=== PATIENT | female | born 1980 | race Caucasian/White ===

== ENCOUNTER 2016-10-22 22:21 | Emergency (ER) | payer OTHER ==
[~2016-10-22] VITALS: Ht 149.9 cm; Wt 56.8 kg
[2016-10-22 22:30] VITALS: BP 125/58
--- NOTE | 2016-10-22 22:48 | NUR ---
Patient ambulated to bed 06.
--- NOTE | 2016-10-22 22:50 | NUR ---
36 Y/O F W/C/O POSSIBLE TAMPON STUCK IN HER CERVIX. SHE STATES SHE DOES NOT REMEMBER TAKING IT OUT, OR REPLACED FOR A NEW ONE X TODAY AT NOON. PT DENIES ANY PAIN, BUT BECAME CONCERN WHE SHE COULDNT FEEL THE STRING. ER MD MADE AWARE. NO S/S OF DISTRESS NOTED AT THE MOMENT.
--- NOTE | 2016-10-22 22:54 | NUR ---
Dr. Pederson evaluating patient at bedside.
--- NOTE | 2016-10-22 23:29 | NUR ---
Female chaperoned for Dr. jones during pelvic exam
--- NOTE | 2016-10-22 23:35 | NUR ---
DR JIMENEZ ASSISTED BY DR KAT-RESIDENT WITH DOG BEHAVIORIST PROCEDURE, WITH AVE EMT AUTO MOTOR MECHANIC AT BEDSIDE THE WHOLE TIME.
--- NOTE | 2016-10-22 23:43 | NUR ---
Female chaperoned for Dr. Villareal and Dr. Martinez during pelvic exam for removal of foreign body.
[2016-10-22 23:48] VITALS: BP 112/65
--- NOTE | 2016-10-22 23:48 | NUR ---
Patient discharged with v/s stable. Written and verbal after care instructions given and explained. Patient verbalized understanding. Ambulatory with steady gait. All questions addressed prior to discharge. Advised to follow up with PMD OR RETURN TO ER IF CONDITION WORSENS.
== END 2016-10-22 23:48 | disposition home or self-care (01) ==
LOC: MED 22:21
DX: T19.2XXA Foreign body in vulva and vagina, initial encounter (principal); F17.210 Nicotine dependence, cigarettes, uncomplicated; Z88.8 Allergy status to other drugs, medicaments and biological substances; X58.XXXA Exposure to other specified factors, initial encounter; Y93.89 Activity, other specified; Y92.89 Other specified places as the place of occurrence of the external cause; Y99.8 Other external cause status
CPT/HCPCS: 99284

== ENCOUNTER 2021-02-07 09:57 | Emergency (ER) | payer OTHER ==
[~2021-02-07] VITALS: Ht 149.9 cm; Wt 71.7 kg
[2021-02-07 10:03] VITALS: BP 122/52
--- NOTE | 2021-02-07 10:08 | NUR ---
PT AMBULATED TO ER BED WITH A STEADY GAIT.
--- NOTE | 2021-02-07 10:09 | NUR ---
40 Y/O FEMALE REFERRED BY DR. WAGGONER. PT STATES SHE WAS SENT TO RECEIVE STD TREATMENT. PT IS 14 WEEKS , LMP 10/01/20, IGOR 08/08/21. DENIES PAIN, DENIES SOB, DENIES CHEST PAIN. PMH: DM, HTN ALLERGIES: IBUPROFEN
--- NOTE | 2021-02-07 12:00 | NUR ---
PT RESTING IN BED, VISIBLE EQUAL RISE AND FALL, VSS, WILL CONTINUE TO MONITOR.
--- NOTE | 2021-02-07 12:55 | NUR ---
DR. CLOUD WITH PT AT PT BEDSIDE FOR FURTHER EVALUATION.
[2021-02-07] MEDS: PENICILLIN G BENZATHINE L-A 1.2 MU/2 ML SYR IM ONE (13:17)
[2021-02-07 13:31] VITALS: BP 129/62
--- NOTE | 2021-02-07 13:31 | NUR ---
Patient discharged with v/s stable. Written and verbal after care instructions given SYPHILIS and explained. Patient verbalized understanding. Ambulatory with steady gait. All questions addressed prior to discharge. Advised to follow up with PMD.
== END 2021-02-07 13:31 | disposition home or self-care (01) ==
LOC: MED 09:57
DX: O98.111 Syphilis complicating pregnancy, first trimester (principal); O98.311 Other infections with a predominantly sexual mode of transmission complicating pregnancy, first trimester; O24.111 Pre-existing type 2 diabetes mellitus, in pregnancy, first trimester; O10.911 Unspecified pre-existing hypertension complicating pregnancy, first trimester; Z3A.14 14 weeks gestation of pregnancy; Z88.6 Allergy status to analgesic agent
CPT/HCPCS: 99283; J0561

== ENCOUNTER 2021-02-14 08:49 | Emergency (ER) | payer OTHER ==
[~2021-02-14] VITALS: Ht 149.9 cm; Wt 73.0 kg
[2021-02-14 09:03] VITALS: BP 136/56
--- NOTE | 2021-02-14 09:07 | NUR ---
PT AMBULATED TO BED 11
--- NOTE | 2021-02-14 09:21 | NUR ---
PT STATES SHE IS "HERE FOR A PCN SHOT." PATIENT WAS TOLD BY HER OBGYN SHE NEEDS TO RECIEVE A PCN SHOT EVERY FRIDAY FOR 3 WEEK TO TREAT HER SYPHILIS. PT ALSO STATES SHE IS 15 WEEKS WITH 4TH CHILD. DENIES N/V/D; SKIN IS PINK/WARM/DRY; AAOX4 WITH EVEN AND STEADY GAIT; PT DENIES ANY FEVER, CP, SOB, OR COUGH AT THIS TIME; PATIENT STATES PAIN OF 0/10 AT THIS TIME; VSS; PATIENT POSITIONED FOR COMFORT; HOB ELEVATED; BEDRAILS UP X2; BED DOWN. ER MD MADE AWARE OF PT STATUS. HX: HTN, DM, AND STI NKDA MEDS:
[2021-02-14] MEDS ORDERED: PENICILLIN G BENZATHINE L-A 1.2 MU/2 ML SYR IM ONE (09:25)
--- NOTE | 2021-02-14 09:27 | NUR ---
ER AT BEDSIDE
[2021-02-14 09:59] VITALS: BP 136/56
--- NOTE | 2021-02-14 09:59 | NUR ---
Patient discharged with v/s stable. Written and verbal after care instructions given and explained. Patient verbalized understanding. Ambulatory with steady gait. All questions addressed prior to discharge. Advised to follow up with PMD.
== END 2021-02-14 09:59 | disposition home or self-care (01) ==
LOC: MED 08:49
DX: O98.112 Syphilis complicating pregnancy, second trimester (principal); Z3A.15 15 weeks gestation of pregnancy; Z98.890 Other specified postprocedural states
CPT/HCPCS: 96372; 99283; J0561

== ENCOUNTER 2021-02-21 10:28 | Emergency (ER) | payer OTHER ==
[~2021-02-21] VITALS: Ht 149.9 cm; Wt 73.0 kg
[2021-02-21 10:31] VITALS: BP 119/54
--- NOTE | 2021-02-21 10:40 | NUR ---
PT AMBULATED TO [facility], STEADY GAIT
[2021-02-21] MEDS ORDERED: PENICILLIN G BENZATHINE L-A 1.2 MU/2 ML SYR IM ONE (10:50)
--- NOTE | 2021-02-21 10:50 | NUR ---
Wendie holden in ED - 02/21/21 at 1052 by [email or web address] PT TAKEN TO XRAY VIA W/C
--- NOTE | 2021-02-21 11:05 | NUR ---
PT AMBULATED TO [facility], STEADY GAIT
[2021-02-21 12:05] VITALS: BP 119/54
== END 2021-02-21 12:06 | disposition home or self-care (01) ==
LOC: MED 10:28
DX: A53.9 Syphilis, unspecified (principal); E11.9 Type 2 diabetes mellitus without complications; I10 Essential (primary) hypertension
CPT/HCPCS: 96372; 99283; J0561

== ENCOUNTER 2021-08-02 06:27 | Inpatient (IN) | payer OTHER ==
[~2021-08-02] VITALS: Ht 149.9 cm; Wt 68.0 kg
[2021-08-02] MEDS ORDERED: ONDANSETRON 4 MG/2 ML VIAL IVP PRN (07:10)
[2021-08-02] MEDS ORDERED: OXYTOCIN 20 UNITS in LACTATED RINGERS 1,000 ML IV SCH (07:10)
[2021-08-02] MEDS ORDERED: CARBOPROST 250 MCG/ML AMP IM PRN (07:10)
[2021-08-02] MEDS ORDERED: AMPICILLIN 2,000 MG in NACL 0.9% MINI-BAG PLUS 100 ML IV SCH (07:10)
[2021-08-02] MEDS ORDERED: METHYLERGONOVINE 0.2 MG/ML AMP IM PRN ×2 (07:10→18:05)
[2021-08-02] MEDS: LACTATED RINGERS 1,000 ML IV SCH ×2 (07:27→15:24)
[2021-08-02 08:00] LABS: BASOPHILS % (AUTO) 0.4 % (0.0-2.0); EOSINOPHILS # (AUTO) 0.1 K/uL (0-0.4); EOSINOPHILS % (AUTO) 0.7 % (0.0-4.0); HEMOGLOBIN 11.2 g/dL (12.0-16.0); LYMPHOCYTES # (AUTO) 1.7 K/uL (2.5-16.5); MEAN CORPUSCULAR HEMOGLOBIN 29 pg (27-31); MEAN CORPUSCULAR HGB CONC 33 g/dL (33-37); MEAN CORPUSCULAR VOLUME 87.2 fL (80-94); MONOCYTES # (AUTO) 0.7 K/uL (0.8-1.0); NEUTROPHILS # (AUTO) 8.1 K/uL (1.8-7.7); NEUTROPHILS % (AUTO) 75.9 % (42.2-75.2); PLATELET COUNT (AUTO) 134 K/uL (140-450); RED BLOOD CELL COUNT(AUTO) 3.89 MIL/uL (4.20-5.40); RED CELL DISTRIBUTION WIDTH 14.7 % (11.6-13.7); WHITE BLOOD COUNT (AUTO) 10.6 K/uL (4.8-10.8)
[2021-08-02] MEDS ORDERED: AMPICILLIN 1,000 MG in NACL 0.9% MINI-BAG PLUS 50 ML IV SCH (08:00)
[2021-08-02 08:08] LABS: ALBUMIN 2.3 g/dL (3.4-5.0); ANION GAP 12.6 (8-16); CARBON DIOXIDE 23.7 mmol/L (21-32); CREATININE 0.9 mg/dL (0.6-1.3); POTASSIUM 4.3 mmol/L (3.5-5.1); TOTAL BILIRUBIN 0.2 mg/dL (0.0-1.0)
[2021-08-02] MEDS: MORPHINE SULFATE 10 MG/ML VIAL IVP PRN ×2 (08:10→13:02)
[2021-08-02] MEDS ORDERED: OXYTOCIN 20 UNITS/LR PREMIX 1,000 ML IV ONE (08:25)
[2021-08-02 08:31] VITALS: BP 131/76
[2021-08-02 13:02] VITALS: BP 125/58
[2021-08-02] MEDS ORDERED: ACETAMINOPHEN 325 MG TAB PO PRN (15:35)
--- NOTE | 2021-08-02 16:48 | NUR ---
PATIENT HAS BEEN SCREENED AND CATEGORIZED LOW NUTRITION RISK. PATIENT WILL BE SEEN WITHIN 7 DAYS OF ADMISSION. 08/02/[address] CALLY JENKINS RD
[2021-08-02] MEDS ORDERED: IBUPROFEN 800 MG TAB PO PRN (18:05)
[2021-08-02] MEDS ORDERED: BENZOCAINE/MENTHOL 20%-0.5% 60 GM CAN TP PRN (18:05)
[2021-08-02] MEDS ORDERED: OXYTOCIN 10 UNITS/ML VIAL IM PRN (18:05)
[2021-08-02] MEDS ORDERED: MEASLES, MUMPS, AND RUBELLA 1 VIAL SQVAC ONE (18:05)
[2021-08-02] MEDS ORDERED: METHYLERGONOVINE 0.2 MG TAB PO PRN (18:05)
[2021-08-02 22:22] LABS: APPEARANCE,URINE CLOUDY (CLEAR); BILIRUBIN,URINE 1+ (NEGATIVE); BLOOD, URINE 3+ (NEGATIVE); COLOR,URINE RED (YELLOW); LEUKOCYTE ESTERASE ,URINE TRACE (NEGATIVE); NITRITE, URINE NEGATIVE (NEGATIVE); UGLUCOSE NEGATIVE (NEGATIVE)
[2021-08-02 22:35] LABS: RBC,URINE TOO NUMEROUS TO COUN /HPF (0-5)
[2021-08-02 22:37] LABS: BARBITURATE, URINE NEGATIVE ng/ml (NEG <=200); BENZODIAZEPINE, URINE NEGATIVE ng/mL (NEG <=200); CANNABINOID, URINE NEGATIVE ng/mL (NEG <=50); COCAINE, URINE NEGATIVE ng/mL (NEG <=300); OPIATE, URINE POSITIVE ng/mL (NEG <=2000); PHENCYCLIDINE SCREEN,URINE NEGATIVE ng/mL (NEG <=25)
[2021-08-03 05:34] LABS: HEMOGLOBIN 8.2 g/dL (12.0-16.0)
[2021-08-03 09:07] LABS: HEPATITIS B SURFACE ANTIGEN Negative (Negative)
--- NOTE | 2021-08-03 13:00 | NUR ---
DC PLANNING PATIENT IS A 41-YEAR-OLD FEMALE ADMITTED IN THE [facility]/ED ON 08/02/2021 DUE TO ACTIVE LABOR WITH 39 WEEKS AND 1 DAYS. PATIENT AND BABY TESTED POSITIVE WITH AMPHETAMINES. A CPS INVESTIGATION IS PENDING. SW MEET WITH PATIENT AND HER SIGNIFICANT OTHER AT BED SIDE WITH BABY GIRL TO EDUCATE PATIENT AND SIGNIFICANT OTHER ABOUT POTENTIAL ISSUES WITH POST-, DISCUSS AND INFORMED PATIENT ABOUT SERVICES AVAILABLE IN HER AREA WITH MENTAL HEALTH, PARENTING CLASSES AND ADDITIONAL RESOURCES FOR MATERNAL ASSISTANCE. SW DISCUSSED WITH PATIENT AND FATHER OF BABY ABOUT POTENTIAL ISSUES WITH CPS SINCE MOTHER AND CHILD TESTED POSITIVE WITH AMPHETAMINES. SW DISCUSSED WITH PARENTS MANDATES AND HOSPITAL PROTOCOLS WHEN INVOLVING MINORS EXPOSED TO SUBSTANCE USE. BOTH PARENTS PRESENT DENIED HAVING AN ISSUE WITH SUBSTANCES AND ACKNOWLEDGE INFORMATION PROVIDED TO THEM BY SW ABOUT HOSPITAL PROTOCOLS AND CPS INVOLVEMENT WHEN A BABY IS EXPOSED TO SUBSTANCES. MOTHER WAS APPRECIATIVE OF INFORMATION, BECAME UPSET AND BEGAN TO CRY ABOUT THE SITUATION SHE STILL DECLINED HER USE OF SUBSTANCES AND IS MORE THAN WILLING TO TALK TO CPS AND PROVIDE ALL NEEDED REQUIREMENTS FOR BABY GIRL TO DISCHARGE HOME WITH PARENTS; THESE AUTOMOBILE MECHANIC INFORMED BOTH PARENTS THAT SW ROLE IS TO INFORM THEM, EDUCATE THEM, PREPARE THEM OF POSSIBLE RESOURCES BOTH PARENTS THANKED [employer] FOR THE INFORMATION AND RESOURCES AND AGREED TO FOLLOW UP WITH AGENCIES TO GET SERVICES AVAILABLE FOR MOTHER AND CHILD. PATIENT REPORTED HAVING FAMILY SUPPORT FROM HER MOTHER. PATIENT ALSO STATED THAT HER EMERGENCY CONTACT AND MEDICAL DECISION MAKER IS HER SIGNIFICANT OTHER YULIANA ISAAC FATHER OF THE BABY AND SIGNIFICANT OTHER AT BEDSIDE DURING THE VISIT.PATIENT REPORTED NOT HAVING ANY A.D. AND DECLINED THE A.D. INF. FORMS PROVIDED BY DESTINY. PATIENT REPORTED THAT SHE IS INDEPENDENT AND AMBULATORY. REPORTED NOT HAVING OR NEEDING ANY DME. PATIENT REPORTED NOT TAKING ANY MEDICATIONS NOW BUT HAVING NO ISSUES GETTING OR TAKING MEDICATIONS WHEN THEY ARE PRESCRIBED. PATIENT REPORTED THAT HER SIGNIFICANT OTHER MR. BRIDGES WILL BE ASSISTING WITH HER TRANSPORTATION BACK HOME WHEN SHE IS READY FOR DC FROM [facility]. SW WILL FOLLOW UP NEEDED PATIENT.
[2021-08-03] MEDS: FERROUS SULFATE 325 MG TABEC PO SCH (18:06)
[2021-08-04] MEDS: FERROUS SULFATE 325 MG TABEC PO SCH (08:37)
== END 2021-08-04 12:55 | disposition home or self-care (01) | DRG 560 ==
LOC: MLD 06:27 → MFCC 20:24
PROVIDERS: ADMIT Obstetrics & Gynecology; ATTEND Obstetrics & Gynecology
PROC: 10E0XZZ Delivery of Products of Conception, External Approach (ICD-10-PCS; principal; 2021-08-02)
PROC: 10907ZC Drainage of Amniotic Fluid, Therapeutic from Products of Conception, Via Natural or Artificial Opening (ICD-10-PCS; 2021-08-02)
DX: O75.89 Other specified complications of labor and delivery (principal); Z37.0 Single live birth; E43 Unspecified severe protein-calorie malnutrition; D62 Acute posthemorrhagic anemia; O25.2 Malnutrition in childbirth; R74.01 Elevation of levels of liver transaminase levels; Z20.822 Contact with and (suspected) exposure to COVID-19; O90.81 Anemia of the puerperium; Z3A.39 39 weeks gestation of pregnancy
CPT/HCPCS: 36415; 59409; 80053; 80305; 81001; 85018; 85025; 86592; 86762; 86886; 86900; 86901; 87086; 87340; 87653-90; J2270; J2405; J2590; J7120